=== PATIENT | female | born 1955 | race Caucasian/White ===

== ENCOUNTER → 2017-05-04 | Day surgery (SDC) | payer MEDICARE ==
--- NOTE | 2017-04-29 09:30 | NUR ---
CASE CANCELLED FOR TODAY. TO BE RESCHEDULED PER DR JONES'S OFFICE
[~2017-05-04] VITALS: Ht 165.1 cm; Wt 63.6 kg
[2017-05-04] VITALS (7 sets, daily range): BP systolic 110–178; BP diastolic 74–96; PULSE 74–82; RESP 16; O2SAT 99
[~2017-05-04] MED LIST: CYCL5TAB PO; ERGO500050 PO; FRSM80T PO; Heparin 10,000 Unit/1,000 mL NS Premix IV ONE; LIDO30CR19 TP; MIDO5TAB PO; POTA-62 PO; SEVE800T7 PO; SODI650T PO; fentaNYL-PF 50 mCg/mL 2 mL Inj ONE
[2017-05-04 13:13] LABS: BASOPHILS % (AUTO) 0.6 % (0-3); EOSINOPHILS % (AUTO) 2.4 % (0-5); MONOCYTES % (AUTO) 11.2 % (4-12); Mean Corpuscular Hemoglobin 36.2 pg (27.0-35.0); Mean Corpuscular Volume 110.3 fL (81-100); NEUTROPHILS % (AUTO) 66.8 % (40-74); Platelet Count 165 bil/L (150-400)
[2017-05-04 13:28] LABS: INR 0.9 ratio
--- NOTE | 2017-05-04 15:50 | DRSVH ---
PROCEDURE: 1. Left arm AV fistulogram. 2. Selective venography of left subclavian vein. 3. Conscious sedation x80 minutes. INDICATIONS: Malfunctioning arteriovenous fistula. COMPARISON: [facility], XA, ARTERIO VENOUS FISTULOGRAM (PNL), 11/27/2015, 12:55. TECHNIQUE: Informed, written consent from the patient was obtained prior to the procedure. Patient wa s brought to the angiography suite, and conscious sedation was administered intravenously by care home staff, while continuous cardiorespiratory monitoring was performed. Maximal sterile barrier t echnique, hand hygiene, skin preparation, and sterile ultrasound technique (if ultrasound was utilize d) was followed. A mask, sterile gown, sterile gloves, a large sterile sheet, hand hygiene, and 2% ch lorhexidine or iodine was utilized for skin antisepsis. The left upper extremity was prepped and drap ed sterilely, and the skin and subcutaneous tissues overlying the peripheral aspect of the venous clarke b were infused with lidocaine. The peripheral aspect of the venous limb was accessed antegrade with a micropuncture set. Contrast was injected for arteriovenous fistulogram. A 4 Ivorian sheath was advanc ed, through which a 4 Ivorian nontapered angled catheter was advanced over a Glidewire into the left s ubclavian vein, which was selectively injected for left subclavian venography. Multiple attempts were made to recanalize the left subclavian vein using a Glidewire, a stiff shaft Glidewire, and a front runner device inserted through a 6 Ivorian sheath, which were unsuccessful. Sheath was removed and the venotomy was closed with pursestring closure. FLUOROSCOPY TIME: 20.9 minutes FINDINGS: Aneurysmal dilatation of the peripheral aspect of the venous limb. 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 IMPRESSION: 1. 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 2. Findings discussed with Dr. Islas on 05.04.17 at 1547 hrs. Dictated by: Hafsa Johnson M.D. on 05/04/2017 at 15:44 Approved by: Hafsa Johnson M.D. on 05/04/2017 at 15:49
--- NOTE | 2017-05-04 16:14 | NUR ---
Pt discharged to home, ambulatory, accompanied by friend. Pt given all discharge instructions and had no further questions at time of d/c.
== END | disposition home or self-care (01) ==
LOC: SOUO 04-29 00:06
PROVIDERS: ATTEND Student in an Organized Health Care Education/Training Program
DX: N18.6 End stage renal disease (principal); Z53.9 Procedure and treatment not carried out, unspecified reason

== ENCOUNTER 2017-05-21 12:59 | Inpatient (IN) | payer MEDICARE, MEDICAID ==
[~2017-05-21] VITALS: Ht 167.6 cm; Wt 65.0 kg
[~2017-05-21 12:59] MED LIST changes: -FRSM80T PO; -Heparin 10,000 Unit/1,000 mL NS Premix IV ONE; -LIDO30CR19 TP; -POTA-62 PO; +Piperacillin-Tazo 3.375 Gm Inj 3.375 GM in Dextrose 5% Minibag Plus 50 ML IV ONE; -fentaNYL-PF 50 mCg/mL 2 mL Inj ONE
[2017-05-21 13:24] VITALS: BP 117/75; PULSE 87; RESP 18; O2SAT 99
[2017-05-21 14:35] LABS: BASOPHILS % (AUTO) 0.5 % (0-3); EOSINOPHILS % (AUTO) 1.4 % (0-5); MONOCYTES % (AUTO) 11.6 % (4-12); Mean Corpuscular Hemoglobin 35.8 pg (27.0-35.0); Mean Corpuscular Volume 108.9 fL (81-100); NEUTROPHILS % (AUTO) 73.6 % (40-74); Platelet Count 188 bil/L (150-400)
--- NOTE | 2017-05-21 15:07 | ED.REPORT ---
HPI-General Illness Date of Service May 21, 2017 ED Provider: Dr. Parry The pt is sa 61 y/o female with a hx of laryngeal cancer (s/p radiation) and current dx of multiple myeloma who presents to the ED complaining of non- radiating, moderate, aching pain above her power port over the right side of the chest, onset yesterday. Her pain worsens when she lifts her right arm. Today , she noticed redness superior to the port, extending up to her neck. She also had a fever of 100.4 this morning which resolved after dialysis. The pt has had the port for the last 3 years. She has not taken any pain medications. She denies any other chest pain per se, shortness of breath, abdominal pain, nausea , vomiting, melena, dysuria, hematuria, and hematochezia. Nursing Notes Stated Complaint: POSS INFECTED POWER PORT Chief Complaint: General Complaint Nursing Notes Reviewed: Yes Allergies: Coded Allergies: No Known Allergies (Unverified , 11/27/15) Scheduled Cholecalciferol (Vitamin D3) (Vitamin D3) 50,000 Unit Capsule 50,000 UNIT PO WEEKLY Midodrine (Midodrine) 5 Mg Tablet 5 MG PO On HD days Sevelamer Carbonate (Renvela) 800 Mg Tablet 2,400 MG PO TIDWM Sodium Bicarbonate (Sodium Bicarbonate) 454 Gm Powder 1 TSP PO TID Scheduled PRN Cyclobenzaprine (Cyclobenzaprine) 5 Mg Tablet 5 MG PO TID PRN PRN Spasm General Time Seen by MD: 16:32 Chief Complaint Other (tender area superior to power port on the right chest) Hx Obtained From: Patient Arrived By: Walk-in Sudden in Onset?: Yes Onset Occurred: 1 - 4 hours ago Symptom Duration: Since onset Location: : Chest (right sided) Quality: Painful Radiation: : Does not radiate Severity: Current: Moderate Severity: Maximum: Moderate Recent Healthcare: No recent doctor visit Similar Sx Previous: No Past Medical History Past Medical History 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) Multiple Myelona (unable to afford medications as of 04/2017) Past Surgical History Power port placement Tunnel cath placement left arm fistula Reports: Tubal ligation Smoking History Former Smoker Social History Alcohol Use: "Social" Drug Use: Denies drug use Ambulatory Status Independent Review of Systems Full Review of Systems Constitutional: Reports: Fever (resolved) Eyes: Denies: Blurred bilateral Ears / Nose / Throat: Denies: Throat pain Respiratory: Denies: Shortness of breath Cardiovascular: Reports: Chest pain (right sided pain superior to the power port; denies left sided and substernal chest pain) GI: Denies: Abdominal pain, Hematochezia, Melena, Nausea, Vomiting Female: Denies: Dysuria, Hematuria Musculoskeletal: Reports: Neck pain Hematologic: Denies Adenopathy Endocrine: Denies: Polyuria Skin: Denies Rash Allergy / Immune: Denies: Itching Neurologic: Denies: Headache, Lightheaded Psychiatric: Denies: Change mental status Complete sys rev & neg: except as marked. Physical Exam Nursing note and vitals reviewed. Constitutional: Well-developed, well-nourished. Not diaphoretic. Head: Normocephalic and atraumatic. Mouth/Throat: Oropharynx is clear and moist. No oropharyngeal exudate. Eyes: EOM are normal. Pupils are equal, round, and reactive to light. Neck: Supple, no tracheal deviation. Cardiovascular: Normal rate, regular rhythm. Equal and intact distal pulses throughout. Pulmonary/Chest: Effort normal and breath sounds normal. No respiratory distress. Erythema and tenderness to the right side of her chest superior to the port extending up to the right side of her neck. No induration. Abdominal: Soft. No distension. There is no tenderness, rebound, or guarding. Bowel sounds present. Musculoskeletal: Range of motion grossly intact, moving all extremities. No edema or tenderness appreciated. Neurological: AOx3. Grossly nonfocal exam. Strength and sensation intact and equal to bilateral upper and lower extremities. Skin: Warm and dry, no rashes or pallor appreciated. Psychiatric: Appropriate mood and affect. Behavior appears normal. Vital Signs Vital Signs Date Time Temp Pulse Resp B/P Pulse Ox O2 Delivery O2 Flow Rate FiO2 05/21/17 17:42 37.3 78 16 119/57 99 Room Air 05/21/17 15:25 81 14 119/60 99 Room Air 05/21/17 13:24 37.1 87 18 117/75 99 Room Air Initial VS: Reviewed Interpretation & Diagnostics Lab Results Interpretation Result Diagram: 05/21/17 1422 05/21/17 1422 Test 05/21/17 14:22 05/21/17 15:22 White Blood Count 5.8th/mm3 (3.8-10.1) Red Blood Count 2.57mil/mm3 (3.90-5.20) Hemoglobin 9.2g/dL (12.0-15.6) Hematocrit 28.0% (35.0-46.0) Mean Corpuscular Volume 108.9fL (81-100) Mean Corpuscular Hemoglobin 35.8pg (27.0-35.0) Mean Corpuscular Hemoglobin Concent 32.9% (32.0-37.0) Red Cell Distribution Width 12.9% (12.3-15.4) Platelet Count 188bil/L (150-400) Neutrophils (%) (Auto) 73.6% (40-74) Lymphocytes (%) (Auto) 12.6% (14-46) Monocytes (%) (Auto) 11.6% (4-12) Eosinophils (%) (Auto) 1.4% (0-5) Basophils (%) (Auto) 0.5% (0-3) Sodium Level 138mEq/L (134-144) Potassium Level 3.0mEq/L (3.5-5.2) Chloride Level 94mEq/L (97-108) Carbon Dioxide Level 27mmol/L (18-29) Blood Urea Nitrogen 13mg/dL (8-27) Creatinine 3.58mg/dL (0.57-1.00) Estimat Glomerular Filtration Rate 18mL/min (>59) Glucose Level 103mg/dL (60-99) Lactic Acid Level 1.1mmol/L (0.4-2.0) Calcium Level 8.3mg/dL (8.5-10.1) Magnesium Level 1.6mg/dL (1.6-2.6) Total Bilirubin 0.2mg/dL (0.0-1.2) Aspartate Amino Transf (AST/SGOT) 9U/L (0-50) Alanine Aminotransferase (ALT/SGPT) 5U/L (0-32) Alkaline Phosphatase 54U/L (25-165) Total Protein 6.2g/dL (6.4-8.4) Albumin 3.7g/dL (3.4-5.0) Procalcitonin 0.22ng/mL (0.00-0.08) Hold Urine Received (Received) Re-Eval/Medical Decision Med Decision/Clinical Course In summary, 61-year-old female with a history of laryngeal cancer status post radiation and chemotherapy as well as multiple myeloma presenting to the ED for evaluation of right upper chest pain above her PowerPort associated with redness and swelling. Differential includes cellulitis, line infection, abscess , etc. She did have a fever earlier today, however this is largely resolved upon her presentation to the ED. I cannot appreciate any fluctuance or induration around the area. Laboratory studies reviewed, notable for a hemoglobin of 9.2 from 10.2 2 weeks ago, white blood cell count of 5.8 from 3.3. Potassium of 3 (provided oral potassium here in the emergency department) , creatinine of 3.58, lactic acid 1.1, CBC and CMP otherwise grossly within normal limits. Not tachycardic or hypotensive here in the emergency department. However, given the physical examination findings and the patient's fever, obvious concern that she may have an infected line, however the area around the port itself does not appear to be infected. I discussed the case with the hospitalist. We will hold off on immediately removing the line at this time, however blood cultures were drawn both from the port and from a peripheral site and broad-spectrum antibiotics were initiated here in the ED. Plan admission for further management and evaluation. Patient agreeable to the plan as stated, no further questions. Time of Eval: 16:42 Re-Evaluation/Progress Note: Discussed lab results, disagnosis, and plan to admit with the pt. She understands and agrees with the plan. All questions answered. Consultation : Referral / Consult Name: Vera Hampton MD Consulted With: Hospitalist Call Returned at: 17:22 Boiler Washer: Will see patient, Agrees with eval, Agrees with plan, Accepts admit Counseled Regarding: Diagnosis, Lab results, Need for admission Discharge & Departure Primary Impression: Fever Fever type: unspecified Qualified Code: R50.9 - Fever, unspecified Additional Impression: Port or reservoir infection Encounter type: initial encounter Qualified Code: T80.212A - Local infection due to central venous catheter, initial encounter Disposition: ADMITTED TO HOSPITAL Referrals: Lizzie Walls PAC (PCP) Scribe Attestation Portions of this note were transcribed by Amando Mckinnon. I,, personally performed the history,physical exam and medical decision-making;I reviewed and confirmed the accuracy of the information in the transcribed note. Signed by Brooks Mathew. 05/21/17 copies to: Lizzie Walls William B MD May 21, 2017 15:07 Amando Mckinnon May 21, 2017 16:40
[2017-05-21 15:09] LABS: Magnesium 1.6 mg/dL (1.6-2.6)
[2017-05-21 15:25] VITALS: BP 119/60; PULSE 81; RESP 14; O2SAT 99
[2017-05-21] MEDS ORDERED: Potassium Chloride 20 mEq/15 mL 15mL Oral Soln PO ONE (16:20)
[2017-05-21] MEDS ORDERED: Alum-Mag Hydrox-Simeth 30 mL Suspension PO PRN (17:35)
[2017-05-21] MEDS ORDERED: Ondansetron 2 mg/mL 2 mL Inj IVPUSH PRN (17:35)
[2017-05-21] MEDS ORDERED: CeFAZolin 1 Gm/50 mL D5W IV Premix IV ONE (17:35)
[2017-05-21] MEDS ORDERED: Polyethylene Glycol (PEG) 17 Gm Powder PO PRN (17:35)
[2017-05-21 17:42] VITALS: BP 119/57; PULSE 78; RESP 16; O2SAT 99
--- NOTE | 2017-05-21 19:06 | PCM.HPMED ---
Subjective Date of Service May 21, 2017 Primary Provider: Admitting Physician: Primary Care Physician: Lizzie Walls Attending Physician: Admit Status: From the Emergency Department, Full Admit, Admit to Blue Team Chief Complaint: Infected Port-A-Cath. . History of Present Illness: Simin Thomas is a 61-year-old female with a past medical history significant for laryngeal cancer status post chemotherapy and radiation and current diagnosis of multiple myeloma with secondary end-stage renal disease on hemodialysis who presented to [facility] emergency Department complaining of non-radiating pain superior to the Port-A-Cath over the right side of the chest and supraclavicular area 1 day. She reports that last night she began to experience tenderness and pain with flexion and abduction of her arm. She went to her routine hemodialysis and the hemodialysis nurse instructed her to come to the emergency department due to increased erythema and tenderness to palpation. She also had a fever of 100.4 this morning at the dialysis center which resolved after hemodialysis. The patient has had the port for the last 4 years. She has not taken any pain medications. She denies headache, vision changes, cough, sore throat, substernal or left sided chest pain, shortness of breath, abdominal pain, nausea, vomiting, fever, night sweats , dysuria, diarrhea or constipation, hematochezia or melena. Vital signs in the ER: Temperature 37.1. Pulse 87. Respiratory rate 18. Blood pressure 117/75. Pulse ox 99% on room air. She received cefazolin IV 1 g 1 and potassium chloride PO 40 mg 1 in the ED. PCP is Lizzie Walls PA-C. Oncologist is . Inverform Machine Operator is Dr. Islas. . Review of Systems: A comprehensive review of systems was conducted with the patient and found to be negative except as above in the History of Present Illness. . Allergies Coded Allergies: No Known Allergies (Unverified , 11/27/15) Home Medications Cyclobenzaprine 5 mg 3 times a day as needed for muscle spasm. Midodrine 5 mg on hemodialysis days. Renvela 1600 mg 3 times a day with meals. Sodium bicarbonate 650 mg daily. Vitamin D2 50,000 units every 7 days. . PMH 1. 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 2. Multiple myeloma (unable to afford lenalidomide as of 04/2017) 3. End-stage renal disease secondary to multiple myeloma on hemodialysis on Wednesday and Wednesday. . Surgical History 1. Port-A-Cath. 2. Tunneled catheter. 3. Left arm AV fistula. 4. Bilateral tubal ligation. . Family History Mother who had skin cancer and of breast cancer with brain metastases at 87 years old. Father who of liver cancer. She has 3 sisters who are healthy. . Social History Hx Alcohol Use: Yes (1 mixed drink, 1-2 x/week) Hx Substance Use: No Hx Tobacco Use: Yes Smoking Status: Former Smoker (2.5 PPD x 25 years) Additional Information The patient is and was 25 years. She has 1 daughter and 2 sons who are healthy. 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 . Exam Vital Signs Vital Sign - Last Date Time Temp Pulse Resp B/P Pulse Ox O2 Delivery O2 Flow Rate FiO2 05/21/17 15:25 81 14 119/60 99 Room Air 05/21/17 13:24 37.1 Exam General: Older female lying in bed and in no acute distress, well-developed, well-nourished, appropriately interactive. HEENT: Normocephalic, atraumatic. External ears without defect. Pupils equal, round, and reactive to light. Anicteric sclerae, moist conjunctivae, and no lid lag. Oropharynx free of erythema and cobble stoning with moist mucosa. Neck: Supple with full range of motion. No lymphadenopathy or thyromegaly. Supraclavicular erythema with possible small 1 mm fluctuant mass that is significantly tender to palpation. No tenderness around Port-A-Cath in right chest. Cardiovascular: Regular rate and rhythm without murmurs, rubs, or gallops appreciated Pulmonary: Clear to auscultation bilaterally without crackles, wheezes, or rhonchi. Normal respiratory effort with no use of accessory muscles. Abdomen: Soft, nontender, nondistended, bowel sounds present. No hepatosplenomegaly or masses appreciated. Extremities: No clubbing, cyanosis, or edema. Skin: Normal temperature, turgor, and texture; no ulcers, or subcutaneous nodules appreciated. Neurological: Cranial nerves grossly intact. Normal muscle strength, tone, and bulk. Reflexes, coordination, and sensory function within normal limits. No known gait impairment. Psychiatric: Normal mood and affect. Alert and oriented to person, place, and time. . Lab and Diagnostics Labs Item Value Date Time Lactic Acid Level 1.1 mmol/L 05/21/17 142 Calcium Level 8.3 mg/dL L 05/21/17 1422 Magnesium Level 1.6 mg/dL 05/21/17 1422 Total Bilirubin 0.2 mg/dL 05/21/17 1422 Aspartate Amino Transf (AST/SGOT) 9 U/L 05/21/17 1422 Alanine Aminotransferase (ALT/SGPT) 5 U/L 05/21/17 1422 Alkaline Phosphatase 54 U/L 05/21/17 1422 Total Protein 6.2 g/dL L 05/21/17 1422 Albumin 3.7 g/dL 05/21/17 142 Result Diagram: 05/21/17 14205/21/17 142 Microbiology Blood cultures from Port-A-Cath and peripheral 2 pending. . Assessment & Plan Simin Thomas is a 61-year-old female with a past medical history significant for laryngeal cancer status post chemotherapy and radiation and current diagnosis of multiple myeloma with secondary end-stage renal disease on hemodialysis who presented to [facility] emergency Department complaining of non-radiating pain superior to the Port-A-Cath over the right side of the chest and supraclavicular area 1 day. 1. Probable acute sepsis, present on admission. Active. - Patient presented with supraclavicular erythema above her Port-A-Cath with fever recorded at hemodialysis of 100.4. The patient did not meet SIRS criteria due to absent leukocytosis, however, the patient is immunocompromised due to multiple myeloma and may not be able to mount an appropriate response. - Initial lactic acid 1.1. - Patient received early goal-directed care including: broad-spectrum antibiotics, as well as, IV fluid hydration with NS at 125 mL/hr. 2. Acute Port-A-Cath infection, present on admission. Active. - Received cefazolin 1 g 1 in the ED. We will start vancomycin with dosing per pharmacist and Zosyn 3.375 g every 8 hours. Patient dialyzes on Wednesday and Wednesday. - Continue IV fluid hydration with NS at 125 mL/hr. - Ordered pro-calcitonin, pending. - Ordered blood cultures from Port-A-Cath and peripheral 2, pending. Pending blood culture results may need surgical consult for Port-A-Cath removal in the future. - Will discuss patient to obtain recommendations from Dr. Velez who is currently out of town. Chronic problems: 3. Multiple myeloma, present on admission. Unclear status. - Patient is seen by Dr. Begum of oncology. - She is currently not receiving any immunomodulator therapy for multiple myeloma such as lenalidomide as she is unable to afford this medication. 4. End-stage renal disease secondary to multiple myeloma, present on admission. Stable. - The patient receives hemodialysis on Wednesday and Wednesday. Last dialyzed today 05/21/2017. - She is seen by Dr. Islas of nephrology. We will order a nephrology consultation for hemodialysis on Wednesday. PRN antiemetics: Zofran and Maalox. PRN bowel regimen: Senna and MiraLAX. PRN analgesics: Tylenol. Patient is admitted under inpatient status with expected length of stay greater than 2 midnights due to severity of presenting symptoms, risk of adverse event, and complexity of treatment plan. . VTE Prophylaxis: Sub-Q Heparin (Unfractionated) Resuscitation Status: CPR: Attempt Resuscitation copies to: Anthony Islas MD; Maciej Begum MD; Lizzie Walsl [place] M DO May 21, 2017 17:39
[2017-05-21 19:22] VITALS: BP 166/95; PULSE 86; RESP 18; O2SAT 98
[2017-05-21] MEDS ORDERED: Vancomycin Inj 1,000 MG in IV Premix 1 EACH IV ONE (19:35)
--- NOTE | 2017-05-21 19:48 | PCM.CONPHA ---
Subjective Infected Port-A-Cath. . Reason for Pharmacy Consult: Vancomycin Dosing Objective Vital Signs Date Time Temp Pulse Resp B/P Pulse Ox O2 Delivery O2 Flow Rate FiO2 05/21/17 19:22 36.8 86 18 166/95 98 Room Air 05/21/17 17:42 37.3 78 16 119/57 99 Room Air 05/21/17 15:25 81 14 119/60 99 Room Air 05/21/17 13:24 37.1 87 18 117/75 99 Room Air Weight (Kilograms): 66.100 Height (Feet): 5 Height (Inches): 6.00 Test 05/21/17 14:22 05/21/17 15:22 White Blood Count 5.8th/mm3 (3.8-10.1) Red Blood Count 2.57mil/mm3 (3.90-5.20) Hemoglobin 9.2g/dL (12.0-15.6) Hematocrit 28.0% (35.0-46.0) Mean Corpuscular Volume 108.9fL (81-100) Mean Corpuscular Hemoglobin 35.8pg (27.0-35.0) Mean Corpuscular Hemoglobin Concent 32.9% (32.0-37.0) Red Cell Distribution Width 12.9% (12.3-15.4) Platelet Count 188bil/L (150-400) Neutrophils (%) (Auto) 73.6% (40-74) Lymphocytes (%) (Auto) 12.6% (14-46) Monocytes (%) (Auto) 11.6% (4-12) Eosinophils (%) (Auto) 1.4% (0-5) Basophils (%) (Auto) 0.5% (0-3) Sodium Level 138mEq/L (134-144) Potassium Level 3.0mEq/L (3.5-5.2) Chloride Level 94mEq/L (97-108) Carbon Dioxide Level 27mmol/L (18-29) Blood Urea Nitrogen 13mg/dL (8-27) Creatinine 3.58mg/dL (0.57-1.00) Estimat Glomerular Filtration Rate 18mL/min (>59) Glucose Level 103mg/dL (60-99) Lactic Acid Level 1.1mmol/L (0.4-2.0) Calcium Level 8.3mg/dL (8.5-10.1) Magnesium Level 1.6mg/dL (1.6-2.6) Total Bilirubin 0.2mg/dL (0.0-1.2) Aspartate Amino Transf (AST/SGOT) 9U/L (0-50) Alanine Aminotransferase (ALT/SGPT) 5U/L (0-32) Alkaline Phosphatase 54U/L (25-165) Total Protein 6.2g/dL (6.4-8.4) Albumin 3.7g/dL (3.4-5.0) Procalcitonin 0.22ng/mL (0.00-0.08) Hold Urine Received (Received) Assessment/Plan Assessment/Plan VANCOMYCIN DOSING PER PHARMACY Indication: Infected Port Nephrotoxic risk: HD Wednesday/Wednesday * Had scheduled hemodialysis this morning SCr: 3.58 WBC: 5.8 Procal: 0.22 Additional abx: zosyn Received cefazolin in the ED Blood cultures: pending P: Will give loading dose of vancomycin 1000mg IV once Pt is on dialysis, so will draw additional troughs and dose as appropriately Pharmacy will continue to follow, thank you Ama Brown PharmD May 21, 2017 19:48
[2017-05-21] MEDS: 0.9% Sodium Chloride 1,000 ML IV SCH (20:33)
[2017-05-21] MEDS ORDERED: CHOL500050 PO (20:56)
[2017-05-21] MEDS ORDERED: SODI454P PO (20:56)
[2017-05-22] VITALS (8 sets, daily range): BP systolic 113–170; BP diastolic 67–101; PULSE 79–90; RESP 18–20; O2SAT 96–99
[2017-05-22] MEDS ORDERED: Piperacillin-Tazo 3.375 Gm Inj 3.375 GM in Dextrose 5% Minibag Plus 50 ML IV ONE (00:30)
[2017-05-22] MEDS: Sodium Chloride LOK Flush 10 mL Syringe IVFLUSH SCH ×3 (00:30→16:15)
[2017-05-22] MEDS ORDERED: Piperacillin-Tazo 3.375 Gm Inj 3.375 GM in Dextrose 5% Minibag Plus 50 ML IV SCH (00:30)
[2017-05-22] MEDS: Heparin 5,000 Unit/mL Inj SUBQ SCH ×3 (00:58→16:15)
[2017-05-22] MEDS: 0.9% Sodium Chloride 1,000 ML IV SCH ×2 (01:32→12:47)
[2017-05-22 05:37] LABS: BASOPHILS % (AUTO) 0.9 % (0-3); EOSINOPHILS % (AUTO) 1.7 % (0-5); Mean Corpuscular Hemoglobin 35.5 pg (27.0-35.0); Mean Corpuscular Volume 110.2 fL (81-100); Platelet Count 177 bil/L (150-400)
--- NOTE | 2017-05-22 06:32 | NUR ---
Admit Admitted to 3001 from ED. Able to ambulate on arrival. RA w/o SOB. Tele SR w/o CP. Tolerating PO intake w/o n/v. Right chest portacath accessed prior to arrival with noted redness around port site and pain with touch. IV ABO and NS administered per orders. Ice pack and flexeril for chronic back pain effective per patient. Personal belongings at bedside per patient request. Oriented to call light use and using for needs.
[2017-05-22] MEDS: Vancomycin Dose per Pharmacist XX SCH (08:30)
--- NOTE | 2017-05-22 11:31 | CONS ---
[address] [address] CONSULTATION REPORT PATIENT: DIAZ ALLEN : 1955 MR#: [id number] ADMIT: 05/21/2017 JOB ID: [id number] DATE OF SERVICE: RENAL CONSULTATION: HISTORY OF PRESENT ILLNESS: The patient is a very pleasant 61-year-old white female, who was admitted to [facility] for an infected port. She has a history of end-stage renal disease and renal consultation is being sought for further evaluation of her chronic kidney disease. She states that she has a history of end-stage renal disease since 2012. The etiology of her renal failure is most likely due to multiple myeloma. She normally dialyzes for 4-1/2 hours two days a week, on Wednesday and Wednesday at the [place] [facility]. She normally dialyzes through a left upper arm fistula that has been having some difficulties of note recently. Her last dialysis was yesterday and she states that she completed her treatment without difficulty. She has a history of an indwelling internal jugular port which has been used for chemotherapy and is currently just being used for blood draws. This has been in place for four years. She states that several days ago on she notice some tenderness over the clavicle and inferior aspect of the sternocleidomastoid muscle. This was associated with induration and exquisite tenderness to palpation. She did not notice any exudate, however she has had some fever. She denies any chills or recent upper respiratory tract problems including no history of recent nasal congestion, sore throat, otalgia, or shortness of breath. She does have a chronic cough due to allergies but she states this has not changed. Furthermore she denies any headache or visual changes. There is no dyspnea on exertion, wheezing, chest pain, nausea, vomiting, constipation, diarrhea, skin rashes, or arthralgias. Her appetite has been good. She was seen in the emergency department here and at that time her CBC was unremarkable with the exception of an elevated MCV at 109. Blood cultures were obtained and the preliminary read is positive for gram-positive cocci. Speciation and sensitivities are pending. As noted above the etiology of her chronic kidney disease is due to multiple myeloma. She states the only issues with her dialysis are she has quite labile hypertension and peripheral neuropathy for which she takes midodrine prior to her dialysis. 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 She is being followed by Dr. Saavedra. PAST MEDICAL HISTORY: Significant for myeloma and laryngeal cancer as detailed above. Both of these were treated with chemotherapy and she had additional radiation therapy to her neck. She has not had any chemotherapy in several years. Otherwise she denies a history of any prior stroke, seizure, gout, diabetes, hypertension, asthma, emphysema, coronary artery disease, myocardial infarction, thyroid illness, GERD, hepatitis, lupus, or hyperlipidemia. PAST SURGICAL HISTORY: Remarkable for a left upper arm fistula as detailed above, insertion of a port for chemotherapy and blood draws, tubal ligation, and placement of a PEG tube which has been removed several years ago. She normally is able to take her diet. ALLERGIES: She is not allergic to any food or any medications. SOCIAL HISTORY: She has a history of tobacco use but states she quit in 2012. She takes ethanol on occasion and is currently on disability. She is able to perform her basic activities of daily living without significant problems or restriction. FAMILY HISTORY: Remarkable for asthma, diabetes, coronary artery disease, hypertension, and renal failure. MEDICATIONS: At time of admission include cyclobenzaprine as needed, midodrine before dialysis, Renvela with meals, sodium bicarbonate, and vitamin D. REVIEW OF SYSTEMS: Thoroughly detailed above and otherwise is noncontributory. PHYSICAL EXAMINATION: Revealed a well-developed, 61-year-old white female who was alert and oriented x3, in no distress at time of my evaluation. Her blood pressure was 130/77 with a pulse rate of 86. HEENT examination is remarkable for sallow complexion and pale sclerae. Corneas, conjunctivae, pupils, and extraocular muscles were within normal limits. Mucous membranes were moist. Neck is supple, without adenopathy, thyromegaly, or jugular venous distention. She does have some chronic skin changes throughout her neck from chemotherapy. The area of the right internal jugular vein at the bifurcation of the sternocleidomastoid muscle shows some erythema and induration, and is quite tender to palpation. There is no exudate noted. Lungs are clear to auscultation. Heart is regular and rhythmical, with a soft systolic murmur. Abdomen is soft, without any tenderness, rebound, guarding, masses, or hepatosplenomegaly. Bowel sounds are normal. Extremities showed evidence of some mild clubbing and half and half nails. There was no cyanosis or edema noted. Skin turgor is good and there is no evidence of any rashes. LABORATORY EXAMINATION: As noted above. Her blood cultures are positive for gram-positive cocci. This morning her white count is 4.7, hemoglobin 9.1, hematocrit 28.2, MCV is 110, MCHC is 35, platelet count is 177. Differential was unremarkable. Her sodium is 143, potassium 4, chloride 104, bicarbonate 23, BUN and creatinine were 23 and 4.97, glucose is 87. Her vancomycin trough was 18.2. IMPRESSION: 1. End-stage renal disease-dialysis dependent. 2. Autonomic neuropathy. 3. Macrocytic anemia. RECOMMENDATION: I would like to obtain a B12 and folate with her lab and I will make arrangements for her dialysis on Wednesday. At this point, she does not need any emergent dialysis. Once again, I would like to thank you for allowing me to participate in the care of this most pleasant interesting patient. I will be following her closely with you.
[2017-05-22] MEDS: Piper-Tazo 3.375 Gm/50 mL D5W Minibag Plus - Q8H over 4 hrs IV SCH ×2 (12:47)
--- NOTE | 2017-05-22 14:06 | DRSVH ---
[facility] [address] [place] [address] Echocardiogram Report Name: DIAZ ALLEN RStudy Date: Height: 66 in Hospital Exam Location: [facility] Weight: 146 lb Gender: Other BSA: 1.7 m2 : 1955 Age: 61 yrs BP: 127/86 mmHg Reason For Study: ENDOCARDITIS Ordering Physician: Performed By: Kristian Mcnamara Referring Physician: Ivory CERNA Interpretation Summary The left ventricle is normal in size, wall thickness, and systolic function without any focal wall motion abnormalities. The right ventricle is normal in size and function. There is no significant valvular heart disease. The echocardiogram is within normal limits. Procedure: A two-dimensional transthoracic echocardiogram with color flow and Doppler was performed in limited views only. The study quality was technically adequate. There is no prior echocardiogram noted for this patient. The patient was in normal sinus rhythm during the exam. Left Ventricle: The left ventricle is normal in size, wall thickness, and systolic function without any focal wall motion abnormalities. Right Ventricle: The right ventricle is normal in size and function. Atria: Both atria are normal in size. The interatrial septum is intact with no evidence for an atrial septal defect. Mitral Valve: The mitral valve leaflets are slightly calcified. There is no vegetation seen on the mitral valve. There is trace mitral regurgitation. Aortic Valve: The aortic valve opens well. There is no aortic valvular vegetation. No aortic regurgitation is present. Tricuspid Valve: There is no tricuspid valve vegetation. No tricuspid regurgitation. Pulmonic Valve: The pulmonic valve leaflets are thin and pliable; valve motion is normal. There is no vegetation on the pulmonic valve. Great Vessels: The ascending aorta is mildly enlarged. The IVC is of normal diameter and collapses greater than 50% with a sniff. This suggests a low right atrial pressure of 3 mm Hg. Pericardium/ Pleura There is no pericardial effusion. MMode/2D Measurements & Calculations LVIDd: 4.7 cm LVIDs: 2.9 cm LA A2 area: 13.2 cm FS: 37.6 % LA A4 area: 15.5 cm IVSd: 0.75 cm LA length (vol): 5.1 cm LVPWd: 0.78 cm LA vol: 34.1 ml LA vol index: 19.5 ml/m IVC diam: 1.2 cm RA long axis: 4.3 cm asc Aorta Diam: 3.5 cm RA area: 11.7 cm RA vol: 26.8 ml RA : 15.3 ml/m2 LV galeas. diameter/BSA (cm/m^2): 2.7 LV sys. diameter/BSA (cm/m^2): 1.7 Reading Physician:02:05 PM
--- NOTE | 2017-05-22 14:10 | PCM.PNMED ---
Subjective Date of Service May 22, 2017 Subjective pt has staph grew in BCX, remained afebrile, skin looked less red, tender, denied any complaints Exam Vital Signs Vital Sign - Last Date Time Temp Pulse Resp B/P Pulse Ox O2 Delivery O2 Flow Rate FiO2 05/22/17 09:25 36.6 86 18 127/86 99 Room Air Intake and Output 05/21/17 05/21/17 05/22/17 Cumulative From/Thru 15:00 23:00 07:00 05/21/17 13:24 - 05/22/17 06:15 Intake Total 1407 ml 1407 ml Output Total 1150 ml 1150 ml Balance 257 ml 257 ml Intake Oral 200 ml 200 ml IV Total 1207 ml 1207 ml Output Urine Total 1150 ml 1150 ml Exam NAD, comfortably laying down on the bed Rt supraclavicular area, mild tenderness, erythema RRR, nl s1, s2 no mrg CTAB, no w,c S,ND,NT,normoactive BS+ warm, no edema, pulses 2/2 RUE, avf, thrill+ IVs and Medications Medications Reviewed: Medications were reviewed in detail Lab and Diagnostics Result Diagram: 05/22/1752405/22/17524 Microbiology Blood cultures from Port-A-Cath and peripheral 2 pending. . Assessment & Plan Simin Thomas is a 61-year-old female with a past medical history significant for laryngeal cancer status post chemotherapy and radiation and current diagnosis of multiple myeloma with secondary end-stage renal disease on hemodialysis who presented to [facility] emergency Department complaining of non-radiating pain superior to the Port-A-Cath over the right side of the chest and supraclavicular area 1 day. acute, active possible Port-A-Cath infection, POA, given exam finding, BCX grew staph 05/22, pt received cefazolin 1 g 1 in the ED, then switched to vancomycin, zosyn. -clinically improving with current tx, continue vancomycin with dosing per pharmacist and Zosyn 3.375 g every 8 hours. Patient dialyzes on Wednesday and Wednesday. -ID consult on wednesday. -awaits BCX, culture from the port, -TTE to r/o endocarditis, -will likely remove port-a-cath soon if BCX remains positive, likely Wednesday, consider surgical/IR consult. Of note, port is not being used for any active tx. Chronic, resolved #Probable acute sepsis, present on admission. Active. Patient presented with supraclavicular erythema above her Port-A-Cath with fever recorded at hemodialysis of 100.4. The patient did not meet SIRS criteria due to absent leukocytosis, however, the patient is immunocompromised due to multiple myeloma and may not be able to mount an appropriate response. Initial lactic acid 1.1. Patient received early goal-directed care including: broad-spectrum antibiotics , IVF -HD stable, afebrile stopped IVF given ESRD. 3. Multiple myeloma, present on admission. Unclear status. - Patient is seen by Dr. Begum of oncology. - She is currently not receiving any immunomodulator therapy for multiple myeloma such as lenalidomide as she is unable to afford this medication. 4. End-stage renal disease secondary to multiple myeloma, present on admission. Stable. - The patient receives hemodialysis on Wednesday and Wednesday. Last dialyzed today 05/21/2017. - She is seen by Dr. Islas of nephrology. We will order a nephrology consultation for hemodialysis on Wednesday. PRN antiemetics: Zofran and Maalox. PRN bowel regimen: Senna and MiraLAX. PRN analgesics: Tylenol. dispo: pending, VTE Prophylaxis: Sub-Q Heparin (Unfractionated) Resuscitation Status: CPR: Attempt Resuscitation Time spent 65min Vera Hampton MD May 22, 2017 09:36
--- NOTE | 2017-05-22 16:15 | NUR ---
Skin/puss Pt has reddened skin area on R upper chest above nuha-cath site. During AM assessment skin was intact, with no drainage. Later in morning pt started to develop whitish puss head at site. Did not touch. Site later oozed out white discharge. Sample obtained and sent to micro. Site covered with band aid.
--- NOTE | 2017-05-22 16:23 | NUR ---
Social Work: Initial Assessment / Multidisciplinary Rounds Data: See initial assessment. Patient is a 61 year old female who was admitted on 05/21/17 for fever and infected port per H&P. Patient's insurance is Medicare and [facility] Supp. Patient's PCP is Lizzie FARRIS. EMR reviewed. SW met with patient to discuss discharge planning. SW role explained. Patient resides at home alone in [place]. Patient considers her son Ifeanyi to be her main support person. Patient states that her daughter Liliana Giang [phone] is her DPOA and that AD have been completed on her behalf. Patient confirms that she is I at baseline and able to perform all ADLs and care needs. Patient confirms that she drives via POV. She receives dialysis at [facility] and her schedule is Wednesday and Wednesday. Patient denies having a hx of home health services or SNF. 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 Upon discharge, patient states that she will drive herself home. SW provided patient with a discharge planning checklist booklet and encouraged to call with any questions or concerns. Patient was discussed in morning rounds. No concerns were noted by MD or staff. SW will continue to follow. Assessment: Patient will likely discharge home when medically stable. Plan: Patient will likely discharge home when medically stable. Patient will transport herself home via POV. SW will continue to follow for needs. ELIDA Cisneros Addendum: 05/22/17 at 1634 by ELIZ TESFAYE SS Amended: Links added.
--- NOTE | 2017-05-22 20:08 | NUR ---
Scott Chavez trough at 18.2, not scheduled one EMAR. Called pharmacy to verify, reported trough is high and would not be typically given at that range.
[2017-05-23] VITALS (7 sets, daily range): BP systolic 151–176; BP diastolic 78–97; PULSE 79–98; RESP 18–20; O2SAT 95–98
[2017-05-23] MEDS: Heparin 5,000 Unit/mL Inj SUBQ SCH ×3 (00:30→20:21)
[2017-05-23] MEDS: Sodium Chloride LOK Flush 10 mL Syringe IVFLUSH SCH ×3 (00:30→16:30)
[2017-05-23] MEDS: Piper-Tazo 3.375 Gm/50 mL D5W Minibag Plus - Q8H over 4 hrs IV SCH ×4 (00:38→12:48)
--- NOTE | 2017-05-23 04:55 | NUR ---
Uneventful Night: Pt had an uneventful night, no c/o pain, chest pain or SOB. Pt refused 0030 dose of Heparin, educated pt what medication was for. Pt slept most of the night, pleasant and cooperative with care.
[2017-05-23] MEDS: Vancomycin Serum Trough XX SCH (05:00)
[2017-05-23 05:09] LABS: BASOPHILS % (AUTO) 0.6 % (0-3); EOSINOPHILS % (AUTO) 2.6 % (0-5); MONOCYTES % (AUTO) 13.2 % (4-12); Mean Corpuscular Hemoglobin 36.3 pg (27.0-35.0); Mean Corpuscular Volume 109.4 fL (81-100); NEUTROPHILS % (AUTO) 69.7 % (40-74); Platelet Count 189 bil/L (150-400)
--- NOTE | 2017-05-23 06:49 | PCM.PHAPRO ---
Progress Date of Service: May 23, 2017 Infected Port-A-Cath. . Vancomycin dosing by pharmacy for 61 y/o woman A: * The patient received a 1000 mg IV vancomycin dose @2032 on 05/21 * Two vancomycin levels have been drawn: * 18.2 mcg/mL @0525 on 05/22 * 13.7 mcg/mL @0500 on 05/23 * Vancomycin kinetics based on the two levels: * Half-life of 58 hours * Ke of 0.012 * Vd 47 liters (0.7 L/kg) * The patient has ESRD and receives dialysis on Mondays and Fridays * One blood culture has grown staph and another has no growth so far P: * Give one vancomycin 750 mg IV dose this morning * Draw a vancomycin level tomorrow morning, prior to dialysis * Pharmacy to give another vancomycin dose if the level tomorrow is under 20 mcg /mL Thank you. Pharmacy will continue to follow this patient. Keyanna Villafuerte May 23, 2017 06:49
--- NOTE | 2017-05-23 08:17 | PCM.PNMED ---
Subjective Date of Service May 23, 2017 Subjective pt remained afebrile, reportedly postule poped yesterday, culture was taken. denied any pain overlying skin. BCX showed 2/3 bottles staph neg Exam Vital Signs Vital Sign - Last Date Time Temp Pulse Resp B/P Pulse Ox O2 Delivery O2 Flow Rate FiO2 05/23/17 06:30 79 05/23/17 05:05 36.4 20 164/95 95 Room Air Intake and Output 05/22/17 05/22/17 05/23/17 Cumulative From/Thru 15:00 23:00 07:00 05/21/17 13:24 - 05/23/17 06:07 Intake Total 2452 ml 550 ml 4409 ml Output Total 1550 ml 1150 ml 3850 ml Balance 902 ml -600 ml 559 ml Intake Oral 1256 ml 550 ml 2006 ml IV Total 1196 ml 2403 ml Output Urine Total 1550 ml 1150 ml 3850 ml # Bowel Movements 0 0 Exam NAD, comfortably laying down on the bed Rt supraclavicular area, significantly less erythema, mildly tender, dressed RRR, nl s1, s2 no mrg CTAB, no w,c S,ND,NT,normoactive BS+ warm, no edema, pulses 2/2 RUE, avf, thrill+ IVs and Medications Medications Reviewed: Medications were reviewed in detail Lab and Diagnostics Result Diagram: 05/23/17 0500 05/22/17 0525 Microbiology Blood cultures from Port-A-Cath and peripheral 2 pending. . Assessment & Plan Simin Thomas is a 61-year-old female with a past medical history significant for laryngeal cancer status post chemotherapy and radiation and current diagnosis of multiple myeloma with secondary end-stage renal disease on hemodialysis who presented to [facility] emergency Department complaining of non-radiating pain superior to the Port-A-Cath over the right side of the chest and supraclavicular area 1 day. acute, active possible Port-A-Cath infection, POA, given exam finding, BCX grew staph coag neg 2/3 bottles 05/22, pt received cefazolin 1 g 1 in the ED, then switched to vancomycin, zosyn. TTE didn't show vegetation. -clinically improving with current tx, continue vancomycin with dosing per pharmacist, given culture result, stop zosyn today. Patient dialyzes on Wednesday and Wednesday. -ID consult on wednesday. -awaits BCX, culture from the port, -pt will likely need SKIP, -will keep NPO after MN tonight, will likely remove port-a-cath likely Wednesday, consider surgical/IR consult. Of note, port is not being used for any active tx. Chronic, resolved #Probable acute sepsis, present on admission. Active. Patient presented with supraclavicular erythema above her Port-A-Cath with fever recorded at hemodialysis of 100.4. The patient did not meet SIRS criteria due to absent leukocytosis, however, the patient is immunocompromised due to multiple myeloma and may not be able to mount an appropriate response. Initial lactic acid 1.1. Patient received early goal-directed care including: broad-spectrum antibiotics , IVF -HD stable, afebrile stopped IVF given ESRD. 3. Multiple myeloma, present on admission. Unclear status. - Patient is seen by Dr. Begum of oncology. - She is currently not receiving any immunomodulator therapy for multiple myeloma such as lenalidomide as she is unable to afford this medication. 4. End-stage renal disease secondary to multiple myeloma, present on admission. Stable. - The patient receives hemodialysis on Wednesday and Wednesday. Last dialyzed today 05/21/2017. - She is seen by Dr. Islas of nephrology. We will order a nephrology consultation for hemodialysis on Wednesday. PRN antiemetics: Zofran and Maalox. PRN bowel regimen: Senna and MiraLAX. PRN analgesics: Tylenol. dispo: pending, VTE Prophylaxis: Sub-Q Heparin (Unfractionated) Resuscitation Status: CPR: Attempt Resuscitation Time spent 35min Vera Hampton MD May 23, 2017 08:17
[2017-05-23] MEDS: Vancomycin Dose per Pharmacist XX SCH (08:30)
--- NOTE | 2017-05-23 10:54 | PCM.PNNEPH ---
Subjective Date of Service May 23, 2017 Subjective Patient is feeling better today. She was able to express some purulent exudate from her indurated area of infection over the right IJ insertion site. She remains afebrile. Her blood cultures came back positive for coag-negative staph. Blood pressure today is 160/90 with I's and O's and last 24 hours being 3859 and 2700 out. She denies any fever, chills, pain, cough, chest pain nausea or vomiting. Exam Vital Signs Vital Sign - Last Date Time Temp Pulse Resp B/P Pulse Ox O2 Delivery O2 Flow Rate FiO2 05/23/17 09:14 36.5 83 18 168/90 95 Room Air Intake and Output 05/22/17 05/22/17 05/23/17 Cumulative From/Thru 15:00 23:00 07:00 05/21/17 13:24 - 05/23/17 06:07 Intake Total 2452 ml 550 ml 4409 ml Output Total 1550 ml 1150 ml 3850 ml Balance 902 ml -600 ml 559 ml Intake Oral 1256 ml 550 ml 2006 ml IV Total 1196 ml 2403 ml Output Urine Total 1550 ml 1150 ml 3850 ml # Bowel Movements 0 0 Exam The area around the right nape of neck shows some erythema and induration but this appears to be much less than yesterday. Lungs are clear to auscultation. Heart is regular and rhythmical with a soft systolic murmur. Abdomen soft without any tenderness rebound guarding masses or hepatosplenomegaly. Extremities not show any evidence of any clubbing cyanosis or edema. Skin turgor is good and her still evidence of any rashes. Lab and Diagnostics Result Diagram: 05/23/17 0500 05/22/17 0525 Microbiology Blood cultures from Port-A-Cath and peripheral 2 pending. . Plan Impression Impression #1 end-stage renal disease dialysis dependent #2 chloride-negative staph bacteremia sensitivities pending due to an infected port Recommendations #1 status post sensitivities are pending at time of this dictation and appropriate antibiotics will be prescribed pending those confirmation test. Prior to discharge he is to have the port removed. I have written orders for her dialysis for tomorrow. Shahbaz Almanzar DO May 23, 2017 10:53
--- NOTE | 2017-05-23 13:05 | NUR ---
Case Management: IMM given and explained to pt. Jodie TANRN
--- NOTE | 2017-05-23 13:57 | NUR ---
Social Work- Continued D/C Planning/Multidisciplinary Rounds Data: EMR reviewed. Pt is on day 2 of hospitalization. Pt is now admitted as an inpatient. Pt discussed in bedside multidisciplinary rounds, pt to be dialyzed tomorrow. Pt may require removal of her port and abx at discharge. Unknown if these will be PO or IV. No CM or SW orders have been received at this time. Pt is likely to d/c home via POV. Pt has been ambulating around the unit independently. Pt likely to require abx at d/c, SW to R/O IV abx. SW will continue to follow for d/c needs. Assessment: Pt who is independent with ADLs and self-care Plan: Pt is likely to d/c home via POV. Pt likely to require abx at d/c, SW to R/O IV abx. SW will continue to follow for d/c needs. ELIDA Terry
--- NOTE | 2017-05-23 19:12 | NUR ---
Ambulation Pt has ambulating in the hallway independently, no complains of chest pain, fever or SOB. Pleasant and cooperative with care, Per MD note, pt to be NPO after midnight for removal of Port. Call light in place. Will continue to monitor
[2017-05-24] VITALS (12 sets, daily range): BP systolic 96–186; BP diastolic 50–99; PULSE 61–99; RESP 16–18; O2SAT 94–99
[2017-05-24] MEDS: Sodium Chloride LOK Flush 10 mL Syringe IVFLUSH SCH ×4 (00:30→23:33)
[2017-05-24] MEDS: Vancomycin Serum Trough XX SCH (05:00)
[2017-05-24 05:42] LABS: BASOPHILS % (AUTO) 0.5 % (0-3); EOSINOPHILS % (AUTO) 3.4 % (0-5); MONOCYTES % (AUTO) 10.1 % (4-12); Mean Corpuscular Hemoglobin 35.7 pg (27.0-35.0); Mean Corpuscular Volume 110.6 fL (81-100); NEUTROPHILS % (AUTO) 69.8 % (40-74); Platelet Count 189 bil/L (150-400)
--- NOTE | 2017-05-24 06:06 | NUR ---
Comfort Pt reports chronic back pain, pain meds and muscle relaxer offered but pt refused. Pt ambulating in hallway independently, tolerates well, NPO since MN for anticipated procedure.
[2017-05-24] MEDS: Heparin 5,000 Unit/mL Inj SUBQ SCH ×2 (08:29→19:38)
[2017-05-24] MEDS: Vancomycin Dose per Pharmacist XX SCH (08:30)
--- NOTE | 2017-05-24 08:42 | PCM.PNMED ---
Subjective Date of Service May 24, 2017 Subjective pt remained afebrile, no overnight event, awaits port-a-cath removal Exam Vital Signs Vital Sign - Last Date Time Temp Pulse Resp B/P Pulse Ox O2 Delivery O2 Flow Rate FiO2 05/24/17 06:41 81 05/24/17 06:03 36.3 18 119/72 97 Room Air Intake and Output 05/23/17 05/23/17 05/24/17 Cumulative From/Thru 15:00 23:00 07:00 05/21/17 13:24 - 05/24/17 06:03 Intake Total 1320 ml 580 ml 6309 ml Output Total 1000 ml 1100 ml 5950 ml Balance 320 ml -520 ml 359 ml Intake Oral 1320 ml 580 ml 3906 ml IV Total 2403 ml Output Urine Total 1000 ml 1100 ml 5950 ml # Bowel Movements 0 0 Exam NAD, comfortably laying down on the bed Rt supraclavicular area, significantly less erythema, mildly tender, dressed RRR, nl s1, s2 no mrg CTAB, no w,c S,ND,NT,normoactive BS+ warm, no edema, pulses 2/2 RUE, avf, thrill+ IVs and Medications Medications Reviewed: Medications were reviewed in detail Lab and Diagnostics Result Diagram: 05/24/17 0500 05/24/17 0500 Microbiology Blood cultures from Port-A-Cath and peripheral 2 pending. . 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 emergency Department complaining of non-radiating pain superior to the Port-A-Cath over the right side of the chest and supraclavicular area 1 day. acute, active possible Port-A-Cath infection, POA, given exam finding, BCX grew staph coag neg 2/3 bottles senstive to vancomycin, pt received cefazolin 1 g 1 in the ED, then switched to vancomycin, zosyn. TTE didn't show vegetation. -clinically improving with current tx, continue vancomycin with dosing per pharmacist, given culture result, stopped zosyn 05/23. Patient dialyzes on Wednesday and Wednesday. -appreciate ID consult today -awaits wound culture from skin, culture from the port, -pt will likely need SKIP, -awaits remove port-a-cath today by IR, will sent catheter tip culture, Of note , port is not being used for any active tx, confirmed with Dr. Begum Chronic, resolved #Probable acute sepsis, present on admission. Active. Patient presented with supraclavicular erythema above her Port-A-Cath with fever recorded at hemodialysis of 100.4. The patient did not meet SIRS criteria due to absent leukocytosis, however, the patient is immunocompromised due to multiple myeloma and may not be able to mount an appropriate response. Initial lactic acid 1.1. Patient received early goal-directed care including: broad-spectrum antibiotics , IVF -HD stable, afebrile stopped IVF given ESRD. 3. Multiple myeloma, present on admission. Unclear status. - Patient is seen by Dr. Begum of oncology. - She is currently not receiving any immunomodulator therapy for multiple myeloma such as as she is unable to afford this medication. 4. End-stage renal disease secondary to multiple myeloma, present on admission. Stable. - The patient receives hemodialysis on Wednesday and Wednesday, dialysis as scheduled - She is seen by Dr. Islas of nephrology PRN antiemetics: Zofran and Maalox. PRN bowel regimen: Senna and MiraLAX. PRN analgesics: Tylenol. dispo: pending, VTE Prophylaxis: Sub-Q Heparin (Unfractionated) Resuscitation Status: CPR: Attempt Resuscitation Time spent 35min Vera Hampton MD May 24, 2017 08:41
--- NOTE | 2017-05-24 09:21 | PCM.PNNEPH ---
Subjective Date of Service May 24, 2017 Subjective NPO for port-a-cath removal today. No fever observed overnight. Exam Vital Signs Vital Sign - Last Date Time Temp Pulse Resp B/P Pulse Ox O2 Delivery O2 Flow Rate FiO2 05/24/17 08:54 36.4 99 18 186/97 97 Room Air Intake and Output 05/23/17 05/23/17 05/24/17 Cumulative From/Thru 15:00 23:00 07:00 05/21/17 13:24 - 05/24/17 06:03 Intake Total 1320 ml 580 ml 6309 ml Output Total 1000 ml 1100 ml 5950 ml Balance 320 ml -520 ml 359 ml Intake Oral 1320 ml 580 ml 3906 ml IV Total 2403 ml Output Urine Total 1000 ml 1100 ml 5950 ml # Bowel Movements 0 0 Exam General: AAOX3, in no acute distress, well-developed, well-nourished, appropriately interactive. HEENT: Normocephalic, atraumatic. External ears without defect. Anicteric sclerae, moist conjunctivae, and no lid lag. Neck: Supple with full range of motion. No lymphadenopathy or thyromegaly. (+) erythema, painful nodule noted on right supraclavicular area. No tenderness around Port-A-Cath in right chest. No drainage. Cardiovascular: Regular rate and rhythm without murmurs, rubs, or gallops. Pulmonary: CTA bilaterally without crackles, wheezes, or rhonchi. Abdomen: Soft, nontender, nondistended, bowel sounds present. No hepatosplenomegaly or masses appreciated. Extremities: No clubbing, cyanosis, or edema. Skin: Normal temperature, turgor, and texture; no ulcers, or subcutaneous nodules appreciated. Psychiatric: Normal mood and affect. Alert and oriented to person, place, and time. . Lab and Diagnostics Result Diagram: 05/24/17 0500 05/24/17 0500 Microbiology Blood cultures from Port-A-Cath and peripheral 2 pending. . 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 End-stage renal disease secondary to multiple myeloma - elevated BP this morning 3. Macrocytic anemia 4. AG metabolic acidosis 5. Renal osteodystrophy 6. Laryngeal cancer status post chemotherapy and radiation Plan: - Monitor BP - Port-A-cath removal today - HD to be performed today - Continue abx - Add ferritin and iron panel . Ananthapanyasut,Wanwarat MD May 24, 2017 09:21 . Yovanny Parker MD May 24, 2017 09:21
--- NOTE | 2017-05-24 09:47 | NUR ---
Hypertension B/P = 189/97 with HR of 99. Pt has been up and ambulating in the hallway, No complains of SOB, chest discomfort/pressure, or N/V. Pt awaiting dialysis later today, aware, no new orders given at this time, will continue to monitor
[2017-05-24 09:56] LABS: Phosphorus 6.6 mg/dL (2.5-4.9); Unsaturated Iron Binding 185.2 ug/dL
[2017-05-24] MEDS ORDERED: Vancomycin Inj 500 MG in 0.9% Sodium Chloride 100 ML IV ONE (12:00)
--- NOTE | 2017-05-24 12:40 | NUR ---
Off the unit Pt off the unit to the soap slabber for removal of R upper chest port. No complains of increased pain, SOB or fever. Consent reviewed and signed by pt and . SL x 2.
[2017-05-24] MEDS ORDERED: fentaNYL-PF 50 mCg/mL 2 mL Inj ONE ×2 (12:59→13:21)
[2017-05-24] MEDS ORDERED: Heparin 10,000 Unit/1,000 mL NS Premix IV ONE (12:59)
--- NOTE | 2017-05-24 14:54 | DRSVH ---
PROCEDURE: 1. Removal of right chest wall nuha catheter. 2. Conscious sedation x15 minutes. INDICATIONS: Infected nuha catheter. COMPARISON: [facility], XA, CV REMOVE CATH DANA, 02/05/2016, 11:00. TECHNIQUE: Informed, written consent from the patient was obtained prior to the procedure. Patient wa s brought to the angiography suite, and conscious sedation was administered intravenously by nursing home staff, while continuous cardiorespiratory monitoring was performed. Maximal sterile barrier t echnique, hand hygiene and skin preparation for followed. A mask, sterile gown, sterile gloves, a lar ge sterile sheet, hand hygiene, and 2% chlorhexidine or iodine was utilized for skin antisepsis. The right chest wall was prepped and draped sterilely, and the skin and subcutaneous tissues overlying th e right chest wall port were infused with lidocaine. An incision was made overlying the port, which w as then dissected free. Hemostasis was achieved with a Bovie device. The wound was then packed with i odoform gauze and left to heal by secondary intention secondary to infection. A wound care consult wa s then set up for followup. FLUOROSCOPY TIME: 0.8 minutes FINDINGS: No evidence of retained catheter fragment within the right neck and chest wall by fluorosc opic imaging. IMPRESSION: Right chest wall Port-A-Cath removal. Dictated by: Hafsa Johnson M.D. on 05/24/2017 at 14:37 Approved by: Hafsa Johnson M.D. on 05/24/2017 at 14:52
--- NOTE | 2017-05-24 15:17 | NUR ---
pt arrived to [facility] for DIALYSIS at aprox 1415 awake, alert, oriented, cooperative; call light in reach herpetology teacher at bedside, will cont to monitor
--- NOTE | 2017-05-24 18:05 | NUR ---
dialysis note pt was brought to dialysis from recovery after having a port removed, alert and in stable condition, no acute distress noted dressing to upper right shoulder, CDI access washed soap/water, cleaned with chloraprep, cannulated with 15 ga needles x1 attempt per site, pt tolerated well heparin 1000u/ml administered, treatment started BP dropped during treatment and uf was turned off, 200ml NS bolus given, uf remained off the remainder of treatment due to low BP c/o back pain, requested ice pack, pt stated that made back feel better. pt bent access arm and venous needle infiltrated, pt refused to be stuck again stating "I've been through enough today" treatment ended 1.5 hours early total treatment time 3.0 hours total net removed 600ml blood returned, RN held x10 minutes, bleeding stopped, gauze and tape applied, bruit/thrill present Report called to Sharon LEAVITT See DTR for complete dialysis record
--- NOTE | 2017-05-24 18:21 | NUR ---
pt returned to [facility] post DIALYSIS at 1820 via bed escorted by primary RN report returned from performance consultant to primary RN at beside tele youth nutritional monitor informed of return to unit see performance consultant note, intervention, and graphic flow chart for treatment details
--- NOTE | 2017-05-24 20:41 | CONS ---
[address] [address] CONSULTATION REPORT PATIENT: DIAZ ALLEN : 1955 MR#: [id number] ADMIT: 05/21/2017 JOB ID: [id number] DATE OF SERVICE: 05/24/2017 REASON FOR CONSULTATION: Possible infection, right chest port. I thank Dr. Hampton for this timely consult. REASON FOR CONSULT: Possible infected right chest port. HISTORY OF PRESENT ILLNESS: The patient is an extremely unfortunate 61-year-old woman who was in her usual state of health until about four years ago when she was diagnosed simultaneously with multiple myeloma, end-stage renal failure, and tracheal malignancy. 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 Until today, she had a retained right chest port which was used for chemotherapy and more recently just for blood drawing. The patient reports she was in her usual state of reasonably good health and receiving twice weekly dialysis through a left upper extremity fistula until four days ago, when she developed a tender papular lesion over just above her right clavicle. This lesion increased in size and gradually became more tender and eventually there was a small amount of purulent drainage. When she arrived for her scheduled Wednesday dialysis on May 21, the dialysis nurse became concerned that some part of her port apparatus might be infected and referred her to the ED and she was subsequently admitted. Appropriate cultures were done in the ED, and the patient was started on vancomycin and Zosyn. Over the weekend, the patient has remained relatively stable, but the decision was undertaken to pull the port out because apparently it was starting to perhaps erode and was painful and she no longer needed it. Plus, we had this consideration about possible infection, though the patient in no way was toxic nor was the port itself inflamed. In any event, the patient's port was pulled out just earlier today and we are now seeing her in the Dialysis Center, status post port removal. The patient states at this time she has no fevers, chills, or sweats. No significant headache though she has been bothered by some transient hypotension which is a problem for her during dialysis. No significant cough, chest pain, nausea, vomiting, diarrhea. She notes that she still produces fairly significant amounts of urine. PAST MEDICAL HISTORY: 1. Tracheal malignancy, 2012, status post radiation and chemo. 2. Myeloma, status post chemo. 3. End-stage renal disease. SOCIAL HISTORY: The patient was a cigarette smoker up until four years ago, when she was diagnosed with all these problems. At this time, she has not smoked in four years. She drinks once or twice a week, social amounts of alcohol. She lives with two dogs and a cat in the [facility] and gets dialysis twice a week in [place]. FAMILY HISTORY: Negative for TB. Positive for liver and breast cancer. Note that one of the people with breast cancer who from that was her mother and her father of liver cancer. REVIEW OF SYSTEMS: The patient now has no significant headache. She did note a transient decrease in her vision during a hypotensive episode a few moments ago while on dialysis, but now it is back to normal. No sore throat. No significant cough, shortness of breath, chest pain, nausea, vomiting, diarrhea, or dysuria. She states that she is usually quite independent and functional. Remainder of the review of systems negative. PHYSICAL EXAMINATION: Reveals an afebrile woman. Temperature 36.4, pulse 77, respiratory rate 16, blood pressure 168/89. She is saturating well on room air. She is in no distress. Examination of her mental status reveals completely clear. Head without trauma. No temporal wasting. Eyes: Somewhat pale conjunctivae, otherwise normal. Oral cavity negative. Neck supple. There is about an 8 x 5 x 5 mm protuberant lesion just above the right mid clavicle. This area is quite tender and a small amount of thin, watery material can be expressed from it. It is not known if this is over the tract of the port that was pulled as the port is no longer present. The port cavity itself is dressed and packed where the port was removed earlier today. That area looks uninfected. Lungs relatively clear. Cardiac tones without notable murmur. Abdomen soft and nontender. She has a fistula in her left upper extremity which is working well. She is currently being dialyzed. No suprapubic fullness. She does not have a Cabrera. Extremities are well perfused and without evidence of edema, synovitis, or cellulitis. She is neurologically intact. LABORATORIES: Include white count 6000, platelet count 188, creatinine 4.97. Micro studies are of interest. These include two of three blood culture bottles that have been finalized at this point grew coag-negative Staph. This coag-negative Staph is susceptible to oxacillin and is therefore MSSE. It is resistant to clindamycin and sensitive to vancomycin with a low LAKHWINDER of less than 0.5. The patient's catheterization culture is negative and the catheter tip was just removed in surgery and that is pending. IMPRESSION: This patient may or may not have had a significant infection of her port, but it sounds like it was starting to erode anyway, which is a reasonable time to remove the port. Note, that it had been in place four years, and though they can stay in place five years or longer, four years is a fairly long time to retain a port catheter, especially one that is not being used for anything but blood draws. If indeed the port was infected, it seems likely that methicillin-sensitive Staph epidermidis was the organism in play. We have three choices for therapy here. We could use intermittent daptomycin, vancomycin or cefazolin. All of these are easy to use with hemodialysis, though more typically used with hemodialysis done three times a week rather than twice a week. RECOMMENDATIONS: 1. Will go ahead and re-dose the vancomycin after today's dialysis. 2. At the conclusion of Wednesday's dialysis, I would once again give the patient one single large dose of vancomycin and this will complete a total of about seven days of therapy between the two large doses of vancomycin. This is adequate for treatment of a line infection in a person in whom the line was removed. 3. Will continue to follow this interesting patient with you over the next day or two. Thank you very much for this consult.
--- NOTE | 2017-05-25 00:07 | NUR ---
DSG port site: pt.'s dressing oozing dsg reinforced with gauze and bioclusive, currently dry.
[2017-05-25 00:29] VITALS: BP 117/79; PULSE 71; RESP 18; O2SAT 98
[2017-05-25 04:39] VITALS: BP 134/80; PULSE 79; RESP 18; O2SAT 95
[2017-05-25 05:35] LABS: BASOPHILS % (AUTO) 0.4 % (0-3); EOSINOPHILS % (AUTO) 2.2 % (0-5); MONOCYTES % (AUTO) 12.8 % (4-12); Mean Corpuscular Hemoglobin 35.2 pg (27.0-35.0); Mean Corpuscular Volume 109.8 fL (81-100); NEUTROPHILS % (AUTO) 66.7 % (40-74); Platelet Count 191 bil/L (150-400)
[2017-05-25 06:03] LABS: Magnesium 1.9 mg/dL (1.6-2.6)
[2017-05-25 06:35] VITALS: PULSE 82
[2017-05-25 08:13] VITALS: BP 116/79; PULSE 87; RESP 15; O2SAT 94
[2017-05-25] MEDS: Sodium Chloride LOK Flush 10 mL Syringe IVFLUSH SCH ×2 (08:15→15:47)
[2017-05-25] MEDS: Heparin 5,000 Unit/mL Inj SUBQ SCH (08:15)
[2017-05-25] MEDS: Vancomycin Dose per Pharmacist XX SCH (08:30)
--- NOTE | 2017-05-25 08:35 | PCM.PNMED ---
Subjective Date of Service May 25, 2017 Subjective pt remained afebrile, underwent port removal, tolerated well denied pain, fever, chills, cath tip culture in progress, Exam Vital Signs Vital Sign - Last Date Time Temp Pulse Resp B/P Pulse Ox O2 Delivery O2 Flow Rate FiO2 05/25/17 08:13 36.6 87 15 116/79 94 Room Air Intake and Output 05/24/17 05/24/17 05/25/17 Cumulative From/Thru 15:00 23:00 07:00 05/21/17 13:24 - 05/25/17 05:29 Intake Total 600 ml 350 ml 7259 ml Output Total 1900 ml 600 ml 8450 ml Balance -1300 ml -250 ml -1191 ml Intake Oral 600 ml 350 ml 4856 ml IV Total 2403 ml Output Urine Total 1000 ml 600 ml 7550 ml Ultrafiltrate 900 ml 900 ml # Bowel Movements 0 0 Exam NAD, comfortably laying down on the bed RRR, nl s1, s2 no mrg CTAB, no w,c, right upper chest wall sterilely dressed S,ND,NT,normoactive BS+ warm, no edema, pulses 2/2 RUE, avf, thrill+ IVs and Medications Medications Reviewed: Medications were reviewed in detail Lab and Diagnostics Result Diagram: 05/25/17 0500 05/25/17 0500 Microbiology Blood cultures from Port-A-Cath and peripheral 2 pending. . 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 acute, active staph coag neg bacteremia due to presumed Port-A-Cath infection,POA, given exam finding, staph coag neg 2/3 bottles senstive to vancomycin, cefazolin. pt received cefazolin 1 g 1 in the ED, then switched to vancomycin, zosyn. then sozysn stopped on 05/23. TTE didn't show vegetation. Port was removed successfully 05/24. -clinically stable, continue vancomycin last dose on Wednesday to finish 7days course per ID -appreciate ID follow up -awaits wound culture from skin, culture from the port, Chronic, resolved #Probable acute sepsis, present on admission. Active. Patient presented with supraclavicular erythema above her Port-A-Cath with fever recorded at hemodialysis of 100.4. The patient did not meet SIRS criteria due to absent leukocytosis, however, the patient is immunocompromised due to multiple myeloma and may not be able to mount an appropriate response. Initial lactic acid 1.1. Patient received early goal-directed care including: broad-spectrum antibiotics , IVF -HD stable, afebrile stopped IVF given ESRD. 3. Multiple myeloma, present on admission. Unclear status. - Patient is seen by Dr. Begum of oncology. - She is currently not receiving any immunomodulator therapy for multiple myeloma such as as she is unable to afford this medication. 4. End-stage renal disease secondary to multiple myeloma, present on admission. Stable. - The patient receives hemodialysis on Wednesday and Wednesday, dialysis as scheduled - She is seen by Dr. Islas of nephrology PRN antiemetics: Zofran and Maalox. PRN bowel regimen: Senna and MiraLAX. PRN analgesics: Tylenol. dispo: likely 1-2days VTE Prophylaxis: Sub-Q Heparin (Unfractionated) Resuscitation Status: CPR: Attempt Resuscitation Time spent 35min Vera Hampton MD May 25, 2017 08:35
[2017-05-25] MEDS ORDERED: Darbepoetin Alfa 60 mCg/0.3 mL Inj SUBQ ONE (09:50)
--- NOTE | 2017-05-25 09:54 | PCM.PNNEPH ---
Subjective Date of Service May 25, 2017 Subjective S/p port-a-cath removal without complication. No fever overnight. Hypotension noted during HD. Venous needle infiltrated. Treatment ended 1.5 hours early. UF 600 ml. Stable BP. Exam Vital Signs Vital Sign - Last Date Time Temp Pulse Resp B/P Pulse Ox O2 Delivery O2 Flow Rate FiO2 05/25/17 08:13 36.6 87 15 116/79 94 Room Air Intake and Output 05/24/17 05/24/17 05/25/17 Cumulative From/Thru 15:00 23:00 07:00 05/21/17 13:24 - 05/25/17 05:29 Intake Total 600 ml 350 ml 7259 ml Output Total 1900 ml 600 ml 8450 ml Balance -1300 ml -250 ml -1191 ml Intake Oral 600 ml 350 ml 4856 ml IV Total 2403 ml Output Urine Total 1000 ml 600 ml 7550 ml Ultrafiltrate 900 ml 900 ml # Bowel Movements 0 0 Exam General: AAOX3, in no acute distress, well-developed, well-nourished, appropriately interactive. HEENT: Normocephalic, atraumatic. External ears without defect. Anicteric sclerae, moist conjunctivae, and no lid lag. Neck: Supple with full range of motion. No lymphadenopathy or thyromegaly. Dressing placed on right supraclavicular area. Cardiovascular: Regular rate and rhythm without murmurs, rubs, or gallops. Pulmonary: CTA bilaterally without crackles, wheezes, or rhonchi. Abdomen: Soft, nontender, nondistended, bowel sounds present. No hepatosplenomegaly or masses appreciated. Extremities: No clubbing, cyanosis, or edema. Lab and Diagnostics Result Diagram: 05/25/17 0500 05/25/17 0500 Microbiology Blood cultures from Port-A-Cath and peripheral 2 pending. . 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 End-stage renal disease secondary to multiple myeloma - on HD Q M&F 3. Macrocytic anemia - Normal vitB12, folate, ferritin and Tsat 4. AG metabolic acidosis 5. Renal osteodystrophy 6. Laryngeal cancer status post chemotherapy and radiation Plan: - Next HD on Wednesday - Abx per ID - Will give aranesp 60 mcg SubQ x1 today Yovanny Parker MD May 25, 2017 09:54
[2017-05-25 10:14] VITALS: PULSE 83
--- NOTE | 2017-05-25 11:21 | NUR ---
Social Work-readiness for discharge/bedside rounds: Data:EMR Reviewed. Pt is on day 4 of hospitalization for fever infected port. Pt is not medically stable anticipate 1-2 more days. Pt lives at home and will return home at discharge. Pt goes to dialysis Wednesday and Wednesday. ID involved and feels like pt will likely be able to do IV abx through dialysis. Pt confirms home no needs. No anticipated discharge needs. SW will continue to follow if needs arise. Assessment:Pt who is independent at baseline. Plan:Pt to discharge home when medically stable via POV. No anticipated discharge needs. SW will continue to follow if needs arise. ELIDA Ramirez
[2017-05-25 12:15] VITALS: BP 110/66; PULSE 86; RESP 17; O2SAT 92
--- NOTE | 2017-05-25 15:41 | PROG NOTE ---
[address] [address] PROGRESS NOTE PATIENT: DIAZ ALLEN : 1955 MR#: [id number] ADMIT: 05/21/2017 JOB ID: [id number] DATE: 05/25/2017 INFECTIOUS DISEASE FOLLOW UP NOTE: REASON FOR FOLLOWUP: Probable infection of port apparatus. INTERVAL HISTORY: Overnight, the patient has felt dramatically better since the removal of her right chest port and all its connections. She also had dialysis yesterday. She has had no fevers, no chills, no sweats. No significant pain at the site of the port removal and no new pulmonary or GI symptoms. She did have a little trouble with her fistulae yesterday in terms of adequacy for her hemodialysis session. PHYSICAL EXAMINATION: Reveals an afebrile woman. Temperature 36.8, pulse 86, respiratory rate 17, blood pressure 110/66. She is saturating well on room air. No acute distress. She has been walking all around the [place] and we saw her in fact taking off to hike around the [place] as we finished our physical examination. Eyes without conjunctivitis. The site of the port is covered with a large dressing but it is essentially nontender. The lungs are clear. Cardiac tones: Regular rate and rhythm. No significant murmur. No skin rash noted. LABORATORIES: Include a white count 4500, creatinine 5.33 as she is constantly in renal failure. Procalcitonin 0.69. These numbers are difficult to interpret in renal failure but probably normal. Random vanco trough this morning is 20 and this will likely fall very slowly going forward. Micro studies include two of four bottles from one set growing coag-negative Staph. This coag-negative staph had a vanc LAKHWINDER of 1. The other set of blood cultures negative. Echocardiogram showed no valvular vegetations. IMPRESSION: This patient is doing very well. At this point, I see no evidence for sustained bacteremia endocarditis or other problems. It seems likely that she did have an infection involving the line extending from the port up into the neck as she developed a focal area of tenderness and purulent drainage just above the clavicle about where the extension of the port would have been directed into her vasculature. The port has now been removed and the patient is receiving vancomycin. RECOMMENDATIONS: 1. The patient should receive another dose of vancomycin after her dialysis on Wednesday. 2. There are no other ID recommendations. 3. ID will go ahead and sign off at this time.
--- NOTE | 2017-05-25 15:54 | PCM.DIMED ---
Discharge Instructions Date of Service May 25, 2017 Dates of Hospitalization May 21, 2017 at 18:23 Discharge Diagnosis Discharge Diagnosis acute dx staph coag neg bacteremia due to presumed Port-A-Cath infection Chronic dx Multiple myeloma End-stage renal disease secondary to multiple myeloma, Diet Discharge Diet: Renal Diet Activity Discharge Activity: No restrictions Patient Instructions Patient Instructions You were hospitalized with blood stream infection likely resulted from infected port. Port was removed safely. Your condition was stable with antibiotics. Please note that you are arranged for last dose of antibiotics vancomycin 1g iv after dialysis on Wednesday. Please follow up with your kidney doctor and oncologist Please follow up with Wound care center tomorrow, for dressing needs Follow-up Provider: Yovanny Parker MD Follow-up with PCP in: 1 week Provider: Maciej Begum MD Follow-up in: 2 weeks Vera Hampton MD May 25, 2017 15:50
--- NOTE | 2017-05-25 16:54 | NUR ---
Social Work-discharge: Data:EMR Reviewed. Pt is on day 4 of hospitalization for fever and port infection per H&P. Pt is medically stable for discharge. order received for arranging abx through dialysis. Pt will need one more dose of vanco on Wednesday at dialysis. SW confirmed with pt that she goes to [facility] in [place] and sees Dr. Islas. WINSTON placed a call to [facility] and was informed SW needed to call Dr. Islas's office at [phone]. WINSTON spoke with RN Francie and informed her of the need for vanco on Wednesday at dialysis. Francie states she will take care of this and have Dr. Islas write for this medication and get it sent to [facility]. Pt to follow up at wound care center for dressing change. Pt's family to provide transport home. Pt updated and agreeable to plan. Assessment:Pt who is independent at baseline. Plan:Pt to discharge home today via POV. WINSTON arranged vanco through Dr. Islas's office for one dose on Wednesday. Dr. Islas's office to have MD write this order and send it to Kidney center. All updated and agreeable to plan. ELIDA Ramirez
--- NOTE | 2017-05-25 17:14 | PCM.DC.MED ---
Discharge Summary Date of Service May 25, 2017 Dates of Hospitalization Date of Hospital Admission May 21, 2017 at 18:23 Date of Discharge: May 25, 2017 Providers: Admitting Physician: Vera Hampton MD Primary Care Physician: Lizzie Walls Attending Physician: Vera Hampton MD Diagnosis at Time of Discharge Diagnosis at Time of Discharge acute dx staph coag neg bacteremia due to presumed Port-A-Cath infection Chronic dx Multiple myeloma End-stage renal disease secondary to multiple myeloma, Consultations ID Procedures Other Diagnostics PROCEDURE: 1. Removal of right chest wall nuha catheter. 2. Conscious sedation x15 minutes. INDICATIONS: Infected nuha catheter. COMPARISON: [facility], XA, CV REMOVE CATH TUNLD, 02/05/2016, 11:00. TECHNIQUE: Informed, written consent from the patient was obtained prior to the procedure. Patient was brought to the angiography suite, and conscious sedation was administered intravenously by retirement staff, while continuous cardiorespiratory monitoring was performed. Maximal sterile barrier technique, hand hygiene and skin preparation for followed. A mask, sterile gown, sterile gloves, a large sterile sheet, hand hygiene, and 2% chlorhexidine or iodine was utilized for skin antisepsis. The right chest wall was prepped and draped sterilely, and the skin and subcutaneous tissues overlying the right chest wall port were infused with lidocaine. An incision was made overlying the port, which was then dissected free. Hemostasis was achieved with a Bovie device. The wound was then packed with iodoform gauze and left to heal by secondary intention secondary to infection. A wound care consult was then set up for followup. FLUOROSCOPY TIME: 0.8 minutes FINDINGS: No evidence of retained catheter fragment within the right neck and chest wall by fluoroscopic imaging. IMPRESSION: Right chest wall Port-A-Cath removal. Dictated by: Hafsa Johnson M.D. on 05/24/2017 at 14:37 Approved by: Hafsa Johnson M.D. 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 She reports that last night she began to experience tenderness and pain with flexion and abduction of her arm. She went to her routine hemodialysis and the hemodialysis nurse instructed her to come to the emergency department due to increased erythema and tenderness to palpation. She also had a fever of 100.4 this morning at the dialysis center which resolved after hemodialysis. The patient has had the port for the last 4 years. She has not taken any pain medications. She denies headache, vision changes, cough, sore throat, substernal or left sided chest pain, shortness of breath, abdominal pain, nausea, vomiting, fever, night sweats , dysuria, diarrhea or constipation, hematochezia or melena. Vital signs in the ER: Temperature 37.1. Pulse 87. Respiratory rate 18. Blood pressure 117/75. Pulse ox 99% on room air. She received cefazolin IV 1 g 1 and potassium chloride PO 40 mg 1 in the ED. PCP is Lizzie Walls PA-C. Oncologist is . [employer] is Dr. Islas. . Hospital Course Simin Thomas is a 61-year-old female with a past medical history significant for laryngeal cancer status post chemotherapy and radiation and current diagnosis of multiple myeloma with secondary end-stage renal disease on hemodialysis who presented to [facility] emergency Department complaining of non-radiating pain superior to the Port-A-Cath over the right side of the chest and supraclavicular area 1 day. Given remarkable exam findings, staph coag negative bacteremia in 2/3bottles, it was suspected that port was source of infection. pt received cefazolin 1 g 1 in the ED, then switched to vancomycin, zosyn. then sozysn stopped on 05/23, vancomycin was continued. Exam finding significantly improved. TTE didn't show vegetation. Port was removed successfully 05/24 given presumed infection and it' s not used for active tx for several years(confirmed with ) for MM. pt remained afebrile, HD stable throughout hospitalization. Port was safely removed by IR. Plan was receive last dose of Vancomycin 1g after dialysis on to finish 7days course, FU with Wound care Center for dressing. Culture from catheter tip was ngtd. acute, active staph coag neg bacteremia due to presumed Port-A-Cath infection,POA, given exam finding, staph coag neg 2/3 bottles senstive to vancomycin, cefazolin. pt received cefazolin 1 g 1 in the ED, then switched to vancomycin, zosyn. then sozysn stopped on 05/23. TTE didn't show vegetation. Port was removed successfully 05/24. -clinically stable, continue vancomycin last dose on Wednesday to finish 7days course per ID -appreciate ID follow up -awaits wound culture from skin, culture from the port, Chronic, resolved #Probable acute sepsis, present on admission. Active. Patient presented with supraclavicular erythema above her Port-A-Cath with fever recorded at hemodialysis of 100.4. The patient did not meet SIRS criteria due to absent leukocytosis, however, the patient is immunocompromised due to multiple myeloma and may not be able to mount an appropriate response. Initial lactic acid 1.1. Patient received early goal-directed care including: broad-spectrum antibiotics , IVF -HD stable, afebrile stopped IVF given ESRD. 3. Multiple myeloma, present on admission. Unclear status. - Patient is seen by Dr. Begum of oncology. - She is currently not receiving any immunomodulator therapy for multiple myeloma such as as she is unable to afford this medication. 4. End-stage renal disease secondary to multiple myeloma, present on admission. Stable. - The patient receives hemodialysis on Wednesday and Wednesday, dialysis as scheduled - She is seen by Dr. Islas of nephrology PRN antiemetics: Zofran and Maalox. PRN bowel regimen: Senna and MiraLAX. PRN analgesics: Tylenol. dispo: likely 1-2days Exam Vital Signs (Last) Date Time Temp Pulse Resp B/P Pulse Ox O2 Delivery O2 Flow Rate FiO2 05/25/17 12:15 36.8 86 17 110/66 92 Room Air Exam NAD, comfortably laying down on the bed RRR, nl s1, s2 no mrg CTAB, no w,c, right upper chest wall sterilely dressed S,ND,NT,normoactive BS+ warm, no edema, pulses 2/2 RUE, avf, thrill+ Test 05/21/17 14:22 05/21/17 15:22 05/23/17 05:00 05/24/17 05:00 Hemoglobin A1c 5.0% (4.8-5.6) Lactic Acid Level 1.1mmol/L (0.4-2.0) Hold Urine Received (Received) Vitamin B12 Level 321pg/mL (211-946) Folate 11.8ng/mL (>3.0) Vancomycin Level Trough 13.7mcg/mL Phosphorus Level 6.6mg/dL (2.5-4.9) Iron Level 81ug/dL (35-150) Total Iron Binding Capacity 266ug/dL (250-450) Percent Iron Saturation 30%sat (15-50) Unsaturated Iron Binding 185.2ug/dL Ferritin 938ng/mL (13-150) Test 05/25/17 05:00 White Blood Count 4.5th/mm3 (3.8-10.1) Red Blood Count 2.64mil/mm3 (3.90-5.20) Hemoglobin 9.3g/dL (12.0-15.6) Hematocrit 29.0% (35.0-46.0) Mean Corpuscular Volume 109.8fL (81-100) Mean Corpuscular Hemoglobin 35.2pg (27.0-35.0) Mean Corpuscular Hemoglobin Concent 32.1% (32.0-37.0) Red Cell Distribution Width 13.2% (12.3-15.4) Platelet Count 191bil/L (150-400) Neutrophils (%) (Auto) 66.7% (40-74) Lymphocytes (%) (Auto) 17.9% (14-46) Monocytes (%) (Auto) 12.8% (4-12) Eosinophils (%) (Auto) 2.2% (0-5) Basophils (%) (Auto) 0.4% (0-3) Sodium Level 142mEq/L (134-144) Potassium Level 4.1mEq/L (3.5-5.2) Chloride Level 98mEq/L (97-108) Carbon Dioxide Level 26mmol/L (18-29) Blood Urea Nitrogen 25mg/dL (8-27) Creatinine 5.33mg/dL (0.57-1.00) Estimat Glomerular Filtration Rate 12mL/min (>59) Glucose Level 84mg/dL (60-99) Calcium Level 9.2mg/dL (8.5-10.1) Magnesium Level 1.9mg/dL (1.6-2.6) Total Bilirubin 0.3mg/dL (0.0-1.2) Aspartate Amino Transf (AST/SGOT) 10U/L (0-50) Alanine Aminotransferase (ALT/SGPT) 5U/L (0-32) Alkaline Phosphatase 50U/L (25-165) Total Protein 6.3g/dL (6.4-8.4) Albumin 4.2g/dL (3.4-5.0) Procalcitonin 0.69ng/mL (0.00-0.08) Random Vancomycin Level 19.8ug/mL Rx Microbiology Results Blood cultures from Port-A-Cath and peripheral 2 pending. . Discharge Medications Discharge Medications Cholecalciferol (Vitamin D3) (Vitamin D3) 50,000 Unit Capsule 50,000 UNIT PO WEEKLY (Reported) Midodrine (Midodrine) 5 Mg Tablet 5 MG PO On HD days (Reported) Sevelamer Carbonate (Renvela) 800 Mg Tablet 2,400 MG PO TIDWM (Reported) Sodium Bicarbonate (Sodium Bicarbonate) 454 Gm Powder 1 TSP PO TID (Reported) As needed Cyclobenzaprine (Cyclobenzaprine) 5 Mg Tablet 5 MG PO TID PRN PRN Spasm ( Reported) Followup Plan Disposition: home Discharge Diet: Renal Diet Discharge Activity: No restrictions Patient Instructions You were hospitalized with blood stream infection likely resulted from infected port. Port was removed safely. Your condition was stable with antibiotics. Please note that you are arranged for last dose of antibiotics vancomycin 1g iv after dialysis on Wednesday. Please follow up with your kidney doctor and oncologist Please follow up with Wound care center tomorrow, for dressing needs Follow-up Provider: Yovanny Parker MD Follow-up with PCP in: 1 week Provider: Maciej Begum MD Follow-up in: 2 weeks Time spent 65min Vera Hampton MD May 25, 2017 17:09
--- NOTE | 2017-05-25 17:24 | NUR ---
Discharge Pt. discharged to home at 1720 in stable condition. IV and tele dc'd prior to discharge. All belongings and instructions sent w/ pt. Pt. understands to call wound care center first thing in the morning to set up f/u appointment for wound care. Sent with additional dressing materials in case of increased drainage. Educated pt. on how to tape abd pad on top of packing to absorb drainage. Pt. states understanding. Pt. also understands that she will be having an antibiotic dose on wednesday dialysis day. No questions/concerns at this time.
== END 2017-05-25 17:24 | disposition home or self-care (01) | DRG 871 ==
LOC: SED 12:59 → OBSVTOIN 18:23 → MPC 18:23
PROVIDERS: ADMIT Internal Medicine; ATTEND Internal Medicine
PROC: 0JPT3XZ Removal of Tunneled Vascular Access Device from Trunk Subcutaneous Tissue and Fascia, Percutaneous Approach (ICD-10-PCS; principal; 2017-05-24)
DX: A41.9 Sepsis, unspecified organism (principal); N18.6 End stage renal disease; C90.00 Multiple myeloma not having achieved remission; E87.2 Acidosis; T82.7XXA Infection and inflammatory reaction due to other cardiac and vascular devices, implants and grafts, initial encounter; Z99.2 Dependence on renal dialysis; Z87.891 Personal history of nicotine dependence; Z92.21 Personal history of antineoplastic chemotherapy; Z92.3 Personal history of irradiation; Z85.21 Personal history of malignant neoplasm of larynx; B95.7 Other staphylococcus as the cause of diseases classified elsewhere